=== PATIENT | female | born 1995 ===

== ENCOUNTER 2017-04-25 05:59 | Inpatient (IN) | payer MEDICAID ==
[2017-04-25 06:12] VITALS: BMI 37.2
[2017-04-25] MEDS ORDERED: Penicillin G 5 Million Unit Vial IVPB ONE ×2 (06:36→07:05)
--- NOTE | 2017-04-25 06:37 | OBADHP ---
Datetime: 04/25/2017 06:30 Admit Comment, IP Provider: at 38+weeks came with c/o rom started at 4.30 am with irrg ctxs, ,no vb, +fm. pt went to [facility] for pnc. lat vist 2 weeks ago. no records. obhx primi pmh den med pnv all nkda psh de soch den ve /-2 a/p at 38+weeks prom/active labor admit to l_d npo/ivf labs pain qasim afua cont yesi amd efm anticipate Pelvic Type - PN: Adequate Extremities - PN: Normal Abdomen - PN: Normal Back - PN: Normal Breast - PN: Normal Lungs - PN: Normal Heart - PN: Normal Thyroid - PN: Normal Neurologic - PN: Normal HEENT - PN: Normal General - PN: Normal FHR - Baseline A Provider: 140 Amniotic Fluid Color, Provider: Bloody Membranes, Provider: Ruptured Contraction Comments Provider: q1-4 Comments, ACOG Physical Exam: gravid,non tender ext no edema,no calf ten Vital Signs Provider: Reviewed; Within Normal Limits IP Chief Complaint: Uterine contractions; Suspected ruptured membranes NICHD Variability Prov Fetus A: Moderate 6-25bpm Dilatation, Provider: 3 Effacement, Provider: 80 Station, Provider: -2 Genitourinary Exam: Normal DTRs - PN: Normal EGA AdmitDate IP: 38.3 IP Adm Impression: Term, intrauterine ; Active labor; Ruptured Membranes IP Admit Plan: Admit to unit; Initiate labor protocol
[2017-04-25] MEDS ORDERED: Lactated Ringer's 1,000 ML IV SCH (06:45)
[2017-04-25] MEDS ORDERED: Oxytocin 30 UNIT 30 UNITS/500 ML BAG IV PRN (07:21)
[2017-04-25 07:47] LABS: BASO % 0.2 % (0.0-2.0); EOS % 0.2 % (0.0-4.0); HEMATOCRIT 34.3 % (34.0-47.0); LYMPH # 1.7 K/uL (1.0-4.3); LYMPH % 20.3 % (20.0-40.0); MEAN CELL VOLUME 85.6 fL (81.0-99.0); MEAN CORPUSCULAR HEMOGLOBIN 29.4 pg (27.0-31.0); MEAN CORPUSCULAR HGB CONC 34.4 g/dL (33.0-37.0); MEAN PLATELET VOLUME 10.1 fL (7.2-11.7); MONO # 0.7 K/uL (0.0-0.8); MONO % 8.6 % (0.0-10.0); RED CELL DISTRIBUTION WIDTH 13.9 % (11.5-14.5); WHITE BLOOD COUNT 8.2 K/uL (4.8-10.8)
[2017-04-25 08:08] LABS: CHLORIDE 102 mmol/L (98-107); SODIUM 137 mmol/L (132-148)
[2017-04-25 08:09] LABS: POTASSIUM 4.4 mmol/L (3.6-5.2)
[2017-04-25 08:11] LABS: ALKALINE PHOSPHATASE 140 U/L (38-126); ALT/SGPT 23 U/L (9-52); AST/SGOT 41 U/L (14-36); BILIRUBIN,TOTAL 0.6 mg/dL (0.2-1.3); BLOOD UREA NITROGEN 7 mg/dL (7-17); CARBON DIOXIDE 21 mmol/L (22-30); GFR AFRICAN-AMERICAN > 60; GLUCOSE,RANDOM 87 mg/dL (65-105); TOTAL PROTEIN 7.1 g/dL (6.3-8.3)
[2017-04-25 08:12] LABS: CALCIUM 9.4 mg/dl (8.6-10.4)
[2017-04-25 08:29] LABS: RBC URINE 8 /hpf (0-3); URINE BACTERIA OCC (<OCC); URINE BILIRUBIN NEGATIVE (NEGATIVE); URINE BLOOD 1+ (NEGATIVE); URINE COLOR Yellow (YELLOW); URINE GLUCOSE (UA) NORMAL (Normal); URINE KETONE NEGATIVE (NEGATIVE); URINE LEUKOCYTE ESTERASE 2+ Leu/uL (Negative); URINE PROTEIN NEGATIVE (NEGATIVE); URINE UROBILINOGEN NORMAL mg/dL (0.2-1.0); WBC URINE 24 /hpf (0-5)
[2017-04-25] MEDS ORDERED: Bupivacaine 0.125%/FentaNYL 200 ML EPI ONE (09:11)
[2017-04-25] MEDS ORDERED: Oxytocin 30 UNIT 30 UNITS/500 ML BAG IV ONE (09:13)
[2017-04-25] MEDS ORDERED: Sodium Citrate/Citric Acid 15 ml Sol PO ONE (10:51)
[2017-04-25] MEDS ORDERED: cefOXitin IV 2 gm in Dextrose 2 GM/50 ML BAG IVPB ONE (10:51)
--- NOTE | 2017-04-25 10:51 | OBPN ---
Datetime: 04/25/2017 10:29 Contraction Comments Provider: every 3 min IP Progress Note Comment: S-patient uncomfortable with epidural FHT 140s, mod enrike, decel for 5min with coreen at 60s; patients position changed and oxygen given.F HR back to baseline 140s; variable snoted Tooc ctx q3min sve 3/70/-3; ballotable A/P Patient with PROM; no change in cervical dilation sinec admission.head ballotable.Patient with decel with regular contractions -discussed with patient and partner about no change in dilation and intolerance of labor .Di scussed csection.Patient and her partner desire to proceed with csection Informed consent obtained using Hstry translation Informed consent signed.Patient was given ample time to ask questions .All questions answered to p atients satisfaction. Vital Signs Provider: Reviewed Vital Signs Provider Details: tachycardia noted Dilatation, Provider: 3 Effacement, Provider: 70 Station, Provider: -3 Datetime: 04/25/2017 06:30 Membranes, Provider: Ruptured Amniotic Fluid Color, Provider: Bloody FHR - Baseline A Provider: 140 TIM Variability Prov Fetus A: Moderate 6-25bpm
[2017-04-25] MEDS ORDERED: ePHEDrine 50 mg/ml Inj ONE (11:34)
[2017-04-25] MEDS ORDERED: Phenylephrine 10 mg/ml Inj ONE (11:34)
[2017-04-25] MEDS ORDERED: Bupivacaine HCl 0.25% PF (10 ml) Inj ONE (11:46)
[2017-04-25] MEDS ORDERED: Bupivacaine HCl 0.5% PF (10 ml) Inj ONE (11:48)
[2017-04-25] MEDS ORDERED: Penicillin G Potassium 2.5 MU in Dextrose 5% In Water 50 ML IV SCH (11:50)
[2017-04-25] MEDS ORDERED: Ketamine 50 mg/ml Inj (10 ml) ONE (11:58)
[2017-04-25] MEDS ORDERED: Midazolam 2 MG/2 ML VIAL ONE ×2 (12:00→12:35)
[2017-04-25] MEDS ORDERED: Morphine 1 mg/ml preservative-free Inj(Duramorph) ONE (12:30)
[2017-04-25] MEDS ORDERED: Propofol 10 mg/ml Inj (20 ML) ONE ×2 (12:37→12:46)
[2017-04-25] MEDS ORDERED: Lidocaine 2% MPF (5 ml) Inj ONE (12:39)
[2017-04-25] MEDS ORDERED: DiphenhydrAMINE 50 mg/ml Inj IVP PRN (13:40)
[2017-04-25] MEDS ORDERED: Morphine 1 mg/ml preservative-free Inj(Duramorph) EPI ONE (13:40)
[2017-04-25] MEDS ORDERED: HYDROmorphone 0.5 mg/0.5 ml ISec IVP PRN ×2 (13:42→13:43)
[2017-04-25] MEDS ORDERED: Oxytocin 30 UNIT 30 UNITS/500 ML BAG IV SCH (13:45)
[2017-04-25] MEDS ORDERED: HYDROmorphone 0.5 mg/0.5 ml ISec ONE (14:59)
[2017-04-25 17:56] LABS: RAPID PLASMA REAGIN NONREACTIVE (NONREACTIVE)
[2017-04-25] MEDS ORDERED: Oxycodone/Acetaminophen 5/325 mg Tab PO PRN (18:36)
--- NOTE | 2017-04-25 19:52 | OBDS ---
DELIVERY PERSONNEL Delivery Doctor: Inocencio Hdz MD Scrub Nurse: Rosalie Boone [employer] Accounts Manager: Lorenza Marrero RN Anesthesiologist: Joseph Olivo MD Resident: DR RICKS MATERNAL INFORMATION Delivery Anesthesia: Epidural Estimated Blood Loss (ml): 700 Placenta Cultured: Yes Maternal Complications: None Provider Comments: Primary csection done for nonreassuirng tracing and arrest of descent LABOR SUMMARY EDC: 05/06/2017 00:00 No. Babies in Womb: 1 Attempted: No Labor Anesthesia: Epidural LABOR INFORMATION Reason for Induction: Not Applicable Onset of Labor: 04/25/2017 04:30 Oxytocin: Augmentation Group B Beta Strep: Not Done Antibiotics # of Doses: 2 Antibiotics Time of Last Dose: 1059 Steroids Given: None Reason Steroids Not Administered: Not Applicable MEMBRANES Membranes Rupture Method: Spontaneous Rupture of Membranes: 04/25/2017 04:30 Length of Rupture (hrs): 7.68 Amniotic Fluid Color: Clear Amniotic Fluid Amount: Moderate Amniotic Fluid Odor: Normal STAGES OF LABOR Stage 3 hrs: 0 Stage 3 min: 2 Total Time in Labor hrs: 7 Total Time in Labor min: 43 CSECTION DELIVERY Primary Indication: Nonreassuring Status Secondary Indication: Arrest of Descent CSection Urgency: Emergency CSection Incidence: Primary Labor: Labor Elective: N/A CSection Incision: Lower Uterine Transverse Uterine Closure: Double-layer closure BABY A INFORMATION Infant Delivery Date/Time: 04/25/2017 12:11 Method of Delivery: Born in Route : No : N/A Forceps: N/A Vacuum Extraction: N/A Shoulder Dystocia : No SHOULDER DYSTOCIA BABY A Infant Delivery Date/Time: 04/25/2017 12:11 PRESENTATION/POSITION BABY A Presentation: Cephalic Cephalic Presentation: Vertex Vertex Position: Left Occipital Anterior Breech Presentation: N/A PLACENTA INFORMATION BABY A Placenta Delivery Time : 04/25/2017 12:13 Placenta Method of Delivery: Manual Removal Placenta Status: Delivered SCORES BABY A Heart Rate 1 min: >100 bpm Resp Effort 1 min: Good Cry Reflex Irritability 1 min: Cough or Sneeze or Pulls Away Muscle Tone 1 min: Active Motion Color 1 min: Body [place], Extremities Blue Resuscitation Effort 1 min: Tactile Stimulation SCORE 1 MIN: 9 Heart Rate 5 min: >100 bpm Resp Effort 5 min: Good Cry Reflex Irritability 5 min: Cough or Sneeze or Pulls Away Muscle Tone 5 min: Active Motion Color 5 min: Body [place], Extremities Blue Resuscitation Effort 5 min: N/A SCORE 5 MIN: 9 INFORMATION BABY A Gestational Age at Delivery: 38.3 Gestational Status: Term Infant Outcome : Liveborn Infant Condition : Stable Infant Sex: Male IDENTIFICATION/MEDS BABY A ID Band Number: [id number] ID Band Location: Left Leg; Left Arm Sensor Applied: Yes Sensor Number: [id number] Sensor Location : Cord Clamp Vitamin K Given : Aquamephyton 1 mg IM Erythromycin Given: Given Both Eyes WEIGHT/LENGTH BABY A Infant Birthweight (gms): 3235 Weight (lb): 7 Infant Weight (oz): 2 Length Inches: 19.75 Length cms: 50.2 CORD INFORMATION BABY A No. Cord Vessels: 3 Nuchal Cord : N/A Nuchal Cord Other: N/A True Knot: N/A Infant Cord pH Baby Venous: 7.21 Cord Blood Taken: Yes Banking/Donate Info: N/A Suction: Mouth; Nose ASSESSMENT BABY A Complications: None Physical Findings at Delivery: Within Normal Limits Infant Respirations: Appears Normal Leather Coverer/ALS Called : Yes Infant Care By: DR GAMEZ Transferred To: Remains with Mother
--- NOTE | 2017-04-26 03:07 | OP ---
PROCEDURE DATE: 04/25/2017 PREOPERATIVE DIAGNOSES: 1. Nonreassuring tracing. 2. Arrest of dilation. 3. In term intrauterine . POSTOPERATIVE DIAGNOSES: 1. Nonreassuring tracing. 2. Arrest of dilation. 3. In term intrauterine . SURGEON: Oleg Hdz MD ASSISTANTS: Henri Cohen MD and Lorenza Ramirez, PGY1. Please note that the procedure required two surgical assistants to assist with the entering to the abdominal cavity, to assist with the dissection, to assist with the delivery of the , and to assist with the closure of the abdominal wall. Both the surgical assistants were present and scrubbed for the entire duration of the procedure. TYPE OF ANESTHESIA: Epidural. ANESTHESIA ADMINISTERED BY: Dr. Walter and . COMPLICATIONS: None. ESTIMATED BLOOD LOSS: 700 mL. FINDING: Viable male infant in vertex presentation. Apgars of 9 at one minute, 9 at five minutes. Normal uterus, tubes, and ovaries bilaterally. SPECIMEN: Placenta and cord blood. PROCEDURE IN DETAIL: After informed consent was obtained, the patient was taken to the operating room where epidural anesthesia was administered by the anesthesia team. She was placed in dorsal supine position with a leftward tilt. The Cuevas catheter was confirmed to be draining clear urine. She was then prepped and draped in the usual standard manner. A Pfannenstiel skin incision was then made with the scalpel and carried down to the underlying layer of fascia with the help of the Bovie. The fascia was then incised in the midline and the and the incision was extended laterally with the help of Bovie as well. The superior aspect of the fascial incision was then grasped with Glo clamp to elevate it and the underlying rectus muscle was dissected off. Attention was then turned to the inferior aspect of the fascial incision which in a similar fashion was grasped with Glo clamp to elevate it and the underlying rectus muscle was dissected off. The rectus muscle was in the midline. The peritoneum was entered bluntly. The peritoneal incision was extended superiorly and inferiorly with good visualization of the bladder. The bladder blade was then inserted in the low uterine segment the peritoneum was picked up with hemostat and clamps and entered sharply with Metzenbaum scissors. The incision was extended laterally and bladder flap was created sharply. The bladder blade was then reinserted and the lower uterine segment was once again identified. A transverse incision was made over the lower uterine segment with a help of a fresh scalpel. The hysterotomy was bluntly stretched. The membranes were ruptured and the infant's head was then delivered atraumatically. The body and shoulders were delivered without any difficulty. The cord was then clamped and cut. The nose and mouth was suctioned. The was handed over to the waiting pediatricians. A segment of cord was taken to send for cord blood pH. The cord blood was collected. The placenta was then manually removed and the uterus was exteriorized and cleared off all clots and debris. The uterine incision was repaired with 0 Polysorb in a running locked fashion. A second layer of 3-0 suture was used to imbricate the first layer and also to obtain hemostasis. Adequate hemostasis was noted from the uterine incision at the repair site except in the midsection. The bleeding noted in the midsection was suture ligated with 0 Monocryl and as well as 2-0 Chromic using [id number] stitches. Adequate hemostasis was noted from the uterine incision at the repair site. The uterus was returned to the patient's abdomen and gutters were irrigated and suctioned. The bladder flap was then inspected for hemostasis and adequate hemostasis was noted from it. The bleeding from the midsection of the uterine incision repair site was also inspected for hemostasis where adequate hemostasis was noted from it. At this point, FloSeal was used over the uterine incision repair site. After confirming adequate hemostasis, this muscle layer was re-approximated using 2-0 Polysorb in a running fashion. The fascia was closed with 0 Vicryl in a running fashion. The subcutaneous tissue was re-approximated with 2-0 Polysorb in a running fashion. The skin was closed with 3-0 Monocryl in subcuticular manner. The sponge, lap, needle, and instrument count was correct x3 as reported to me. Oleg Hdz MD
--- NOTE | 2017-04-26 06:33 | CP.PCM.PN ---
Subjective - Date & Time of Evaluation Date of Evaluation: 04/26/17 Time of Evaluation: 06:00 - Subjective Subjective: Anesthesia postop note Pt is a 21 yof s/p cs for non reassuring heart rate, POD ,under epidural anesthesia. Patient seen and examined this morning,awake,alert ,sitting in chair. No nausea,vomiting, regular breathing, moves b/l lower extremities.Sensation and motor strength intact in bl legs. No apparent anesthesia complications. Objective - Vital Signs/Intake and Output Vital Signs (last 24 hours): Temp Pulse Resp BP Pulse Ox 99.4 F 103 H 20 118/67 97 04/26/17 00:30 04/26/17 00:30 04/26/17 00:30 04/26/17 00:30 04/26/17 00:30 - Medications Medications: Current Medications Diphenhydramine HCl (Benadryl) 50 mg IVP Q6H PRN PRN Reason: Itching / Pruritus Lactated Ringer's (Lactated Ringer's) 1,000 mls @ 125 mls/hr IV .Q8H LUKAS Last Admin: 04/25/17 06:55 Dose: 125 mls/hr Penicillin G Potassium 2.5 mu/ (Dextrose) 50 mls @ 100 mls/hr IV Q4H LUKAS Oxytocin (Pitocin) 30 units in 500 mls @ 2 mls/hr IV .Q24H PRN; Protocol; 0.002 UNIT/MIN PRN Reason: Labor Oxytocin (Pitocin) 30 units in 500 mls @ 2 mls/hr IV .Q24H LUKAS; 0.002 UNIT/MIN PRN Reason: Protocol Ibuprofen (Motrin Tab) 600 mg PO Q4H PRN PRN Reason: Pain, Mild (1-3) Ondansetron HCl (Zofran Inj) 4 mg IVP Q6H PRN PRN Reason: Nausea/Vomiting Oxycodone/Acetaminophen (Percocet 5/325 Mg Tab) 1 tab PO Q4H PRN PRN Reason: Pain, moderate (4-7) Stop: 04/28/17 18:36 Oxycodone/Acetaminophen (Percocet 5/325 Mg Tab) 2 tab PO Q4H PRN PRN Reason: Pain, severe (8-10) Stop: 04/28/17 18:37 Last Admin: 04/25/17 23:30 Dose: 2 tab Simethicone (Mylicon Chew Tab) 80 mg PO QID PRN PRN Reason: Constipation - Labs Labs: 04/25/17 07:38 04/25/17 07:38
[2017-04-26 07:32] LABS: HEMATOCRIT 32.7 % (34.0-47.0); MEAN CELL VOLUME 86.3 fL (81.0-99.0); MEAN CORPUSCULAR HEMOGLOBIN 29.1 pg (27.0-31.0); MEAN CORPUSCULAR HGB CONC 33.7 g/dL (33.0-37.0); MEAN PLATELET VOLUME 9.8 fL (7.2-11.7); RED CELL DISTRIBUTION WIDTH 14.4 % (11.5-14.5); WHITE BLOOD COUNT 12.6 K/uL (4.8-10.8)
[2017-04-26 07:55] LABS: CHLORIDE 98 mmol/L (98-107); POTASSIUM 3.9 mmol/L (3.6-5.2); SODIUM 135 mmol/L (132-148)
[2017-04-26 07:57] LABS: GFR AFRICAN-AMERICAN > 60
[2017-04-26 07:58] LABS: ALB/GLOB RATIO 1.1 (1.0-2.1); ALKALINE PHOSPHATASE 126 U/L (38-126); ALT/SGPT 27 U/L (9-52); AST/SGOT 39 U/L (14-36); BILIRUBIN,TOTAL 0.6 mg/dL (0.2-1.3); BLOOD UREA NITROGEN 4 mg/dL (7-17); CALCIUM 8.4 mg/dl (8.6-10.4); CARBON DIOXIDE 24 mmol/L (22-30); GLUCOSE,RANDOM 95 mg/dL (65-105); TOTAL PROTEIN 6.3 g/dL (6.3-8.3)
[2017-04-26] MEDS: Simethicone 80 mg Chewtab PO PRN ×3 (09:59→17:57)
[2017-04-26] MEDS: Oxycodone/Acetaminophen 5/325 mg Tab PO PRN (18:00)
[2017-04-27] MEDS: Simethicone 80 mg Chewtab PO PRN (10:29)
[2017-04-27] MEDS: Oxycodone/Acetaminophen 5/325 mg Tab PO PRN ×2 (10:32→18:36)
[2017-04-27 18:47] VITALS: O2SAT 98
--- NOTE | 2017-04-27 23:07 | OBPPN ---
Datetime: 04/27/2017 22:57 PP Pain Prov: Within normal limits PP Nausea Prov: Denies PP Flatus Prov: Yes PP BM Prov: No PP Breasts Prov: Normal PP Heart Prov: Normal PP Lungs Prov: Normal PP Abdomen/Uterus Prov: Normal PP Lochia Prov: Normal PP Vulva/Perineum Prov: Not Done PP CVA Tenderness Prov: Normal PP Extremities Prov: Normal PP C/S Incision Prov: Normal PP Progress Prov: Normal PP Comments Phys Exam Prov: Abdomen: Obese. Soft. Non distended. Incision with christophe - clean, dry and intact. Fundus firm, mobile, mild and appropriately tender at level of umbilicus. Mild lochia ru bra All other systems reviewed and are neagative PP Impression Prov: Normal progression PP Plan Prov: Continue present management PP Progress Note Prov: Patient received in bed in room 460, earlier thismorning. Asleep; easil awake sammy. Breast- and bottlfeeding. Denies nausea, vomiting, BM. P.E.: as above. Mildly obese, in NAD. Awake, alert, oriented to time, person and place. Pleasant and cooperative. - POD#1 H/H 11.0/32.7. Rh(+) Assessment: POD#2, 21 y.o. P1, S/P primary LTCS for NRFHRT/ arrest of descent. Afebrile, vital si gns stable. Clinically stable. Plan: 1) Continue present management 2) Anticpate discharge home 04/28/17 Vital Signs Provider PP: Reviewed
[2017-04-28 00:18] VITALS: RESP 20
--- NOTE | 2017-04-28 08:45 | OBDCSUM ---
Datetime: 04/28/2017 08:42 Follow up at, Provider: Dr Pritchard Discharge Diagnosis, Provider: Term Delivered Discharge Time: 04/28/2017 08:42 Follow up in weeks, Provider: 1 week Disch Activity Restrictions: No exercising; No driving; No sexual activity; Nothing in vagina - Inte rcourse, tampons, douche Discharge Comment, Provider: Precautions given if fever, pain, bleeding, naues, vomiting, cp, sob, heavy bleeding go to nearest ER Contraception after Delivery: Not Planning to Use
--- NOTE | 2017-04-28 08:45 | OBPPN ---
Datetime: 04/28/2017 08:41 PP Pain Prov: Within normal limits PP Nausea Prov: Denies PP Flatus Prov: Yes PP BM Prov: Yes PP Breasts Prov: Normal PP Heart Prov: Normal PP Lungs Prov: Normal PP Abdomen/Uterus Prov: Normal PP Lochia Prov: Normal PP Vulva/Perineum Prov: Normal PP CVA Tenderness Prov: Normal PP Extremities Prov: Normal PP C/S Incision Prov: Normal PP Progress Prov: Normal PP Impression Prov: Normal progression PP Plan Prov: Continue present management; Discharge PP Progress Note Prov: Pt seen and examined and reports pain is well controlled. Pt is ambualating , voiding, passig flats, +BM. Pt denies any fevers, chills, nause, vomiting, dizzyness, lighthteands , cp, sob. Pt is breast feeding, tolerating regular diet VSS PE: GEN :nAD, AAOx 3 RESP: CTAB/l CVS RRR, +S1/S2 BREAST: Non tender, non engorged b/l ABD: soft, NT/ND, +BS, no guarding no reboudn tendneress, no rigidty Incsion C/D/I FUndu: Fimrk, below level of umbius, minimal lochia, non fouls melling EXT: no calf tenerness, negative chema's sign A/P s/p PLTCS POD #3 doing well, requesting dsicharge -d/c home -f/u clinic 1 week fo incison check -precautions given Vital Signs Provider PP: Reviewed; Within Normal Limits
[2017-04-28 22:21] VITALS: BP 103/70; PULSE 89; TEMP 98.8
== END 2017-04-28 17:30 | disposition home or self-care (01) | DRG 371 ==
LOC: C.EROB 05:59 → C.4D 06:43 → C.4M 17:41
PROVIDERS: ADMIT Obstetrics & Gynecology; ATTEND Obstetrics & Gynecology
PROC: 10D00Z1 Extraction of Products of Conception, Low, Open Approach (ICD-10-PCS; principal; 2017-04-25)
DX: O76 Abnormality in fetal heart rate and rhythm complicating labor and delivery (principal); E66.9 Obesity, unspecified; Z37.0 Single live birth; O62.0 Primary inadequate contractions; O62.1 Secondary uterine inertia; O99.214 Obesity complicating childbirth; Z3A.38 38 weeks gestation of pregnancy